=== PATIENT | male | born 1985 | race American Indian/Alaskan Native ===

== ENCOUNTER 2018-01-12 23:37 | Emergency (ER) | payer SELFPAY ==
[2018-01-13] MEDS ORDERED: TYLENOL ONE (00:56)
[2018-01-13] MEDS ORDERED: TYLENOL PO ONE (00:56)
--- NOTE | 2018-01-13 03:10 | XRay Report ---
FINAL REPORT EXAM: XR CHEST ROUTINE 2V HISTORY: cough/ upper back pain TECHNIQUE: 2 views of the chest. PRIORS: None. FINDINGS: The cardiomediastinal silhouette appears normal. The lungs are clear. The bones and soft tissues are unremarkable. IMPRESSION: No evidence of acute cardiopulmonary disease
[2018-01-13] MEDS ORDERED: DUONEB *Not for PRN Use IH ONE (03:20)
[2018-01-13] MEDS ORDERED: MOTRIN PO ONE (03:21)
[2018-01-13] MEDS ORDERED: TESSALON PERLES PO ONE (03:21)
--- NOTE | 2018-01-13 03:28 | Emergency Department Report ---
- General Chief Complaint: Upper Respiratory Infection Stated Complaint: BACK PAIN; COUGH/CONGESTION Time Seen by Provider: 01/13/18 03:14 Source: patient Mode of arrival: Ambulatory Limitations: No Limitations - History of Present Illness Initial Comments: This is a 32-year-old male nontoxic, well nourished in appearance, no acute signs of distress presents to the ED with c/o of productive cough, wheezing, rhinorrhea, nasal congestion, back pain, and shortness of breathe x2 days. Patient describes productive cough as yellow mucus production. Patient denies any sick contact. Patient denies any recent travels, long car, recent hospital stays. Patient denies any calf pain or calf tenderness. Patient denies any chest pain, fever, chills, nausea, vomiting, hemoptysis, numbness, tingling, headache or stiff neck. Patient denies any allergies. Patient states PMH includes HIV. Patient stated that last CD4 count is undetectable. MD Complaint: cough, rhinorrhea, nasal congestion, other (wheezing, sob) -: days(s) (2) Severity: mild Consistency: constant Improves With: nothing Worsens With: nothing Associated Symptoms: rhinorrhea, nasal congestion, cough, shortness of breath. denies: fever, chills, myalgias, diaphoresis, headache, sore throat, stiff neck , chest pain, abdominal pain, nausea, vomiting, diarrhea, dysuria, rash, confusion, right sweats, weight loss, epistaxis, hoarseness, ear pain Treatments Prior to Arrival: none - Related Data Previous Rx's Medication Instructions Recorded Last Taken Type ALBUTEROL Inhaler [ProAir HFA 2 puff IH QID PRN #1 inhalation 01/13/18 Unknown Rx Inhaler] Azithromycin [Zithromax Z-LIBIA] 250 mg PO DAILY #6 tablet 01/13/18 Unknown Rx Benzonatate [Tessalon Perle] 100 mg PO Q8H PRN #20 capsule 01/13/18 Unknown Rx Ibuprofen [Motrin] 600 mg PO Q8H PRN #30 tablet 01/13/18 Unknown Rx Prednisone [predniSONE 10 mg 10 mg PO .TAPER #1 tab.ds.pk 01/13/18 Unknown Rx (6-Day Pack, 21 Tabs)] Allergies Allergy/AdvReac Type Severity Reaction Status Date / Time No Known Allergies Allergy Unverified 01/13/18 00:51 ED Review of Systems ROS: Stated complaint: BACK PAIN; COUGH/CONGESTION Other details as noted in HPI Constitutional: denies: chills, fever Eyes: denies: eye pain, eye discharge, vision change ENT: denies: ear pain, throat pain Respiratory: cough, shortness of breath, wheezing Cardiovascular: denies: chest pain, palpitations Endocrine: no symptoms reported Gastrointestinal: denies: abdominal pain, nausea, diarrhea Genitourinary: denies: urgency, dysuria Musculoskeletal: denies: back pain, joint swelling, arthralgia Skin: denies: rash, lesions Neurological: denies: headache, weakness, paresthesias Psychiatric: denies: anxiety, depression Hematological/Lymphatic: denies: easy bleeding, easy bruising ED Past Medical Hx - Past Medical History Previous Medical History?: Yes Hx HIV: Yes - Surgical History Past Surgical History?: Yes Additional Surgical History: hand sx - Social History Smoking Status: Former Smoker Substance Use Type: Marijuana - Medications Home Medications: Home Medications Medication Instructions Recorded Confirmed Last Taken Type ALBUTEROL Inhaler [ProAir HFA 2 puff IH QID PRN #1 inhalation 01/13/18 Unknown Rx Inhaler] Azithromycin [Zithromax Z-LIBIA] 250 mg PO DAILY #6 tablet 01/13/18 Unknown Rx Benzonatate [Tessalon Perle] 100 mg PO Q8H PRN #20 capsule 01/13/18 Unknown Rx Ibuprofen [Motrin] 600 mg PO Q8H PRN #30 tablet 01/13/18 Unknown Rx Prednisone [predniSONE 10 mg 10 mg PO .TAPER #1 tab.ds.pk 01/13/18 Unknown Rx (6-Day Pack, 21 Tabs)] ED Physical Exam - General Limitations: No Limitations General appearance: alert, in no apparent distress - Head Head exam: Present: atraumatic, normocephalic - Eye Eye exam: Present: normal appearance Pupils: Present: normal accommodation - ENT ENT exam: Present: normal exam, normal orophraynx, mucous membranes moist, TM's normal bilaterally, normal external ear exam - Neck Neck exam: Present: normal inspection, full ROM. Absent: tenderness, meningismus - Respiratory Respiratory exam: Present: normal lung sounds bilaterally, wheezes (bilateral upper and lower lobes). Absent: respiratory distress, rales, rhonchi, stridor, chest wall tenderness, accessory muscle use, decreased breath sounds, prolonged expiratory - Cardiovascular Cardiovascular Exam: Present: regular rate, normal rhythm, normal heart sounds. Absent: irregular rhythm, systolic murmur, diastolic murmur, rubs, gallop - GI/Abdominal GI/Abdominal exam: Present: soft, normal bowel sounds - Rectal Rectal exam: Present: deferred - Extremities Exam Extremities exam: Present: normal inspection, full ROM, normal capillary refill - Back Exam Back exam: Present: normal inspection, full ROM - Neurological Exam Neurological exam: Present: alert, oriented X3, normal gait - Psychiatric Psychiatric exam: Present: normal affect, normal mood - Skin Skin exam: Present: warm, dry, intact, normal color. Absent: rash ED Course Vital Signs 01/13/18 01/13/18 01/13/18 00:51 00:58 04:01 Temperature 98.8 F Pulse Rate 65 Respiratory 18 18 18 Rate Blood Pressure 133/80 O2 Sat by Pulse 97 Oximetry - Reevaluation(s) Reevaluation #1: 01/13/18 03:27 Patient is speaking in full sentences with no signs of distress noted. ED Medical Decision Making - Lab Data Result diagrams: 01/13/18 03:40 01/13/18 03:40 - Medical Decision Making This is a 32-year-old female that presents with upper respiratory infection. Patient is stable and was examined by me. Chest x-ray has been obtained and dictated by radiologist. D-dimer slightly elevated. CTA negative and dictated by the radiologist within normal limits. Wells Criteria for PE/DVT 0 points. Patient is notified of x-ray results with no questions noted. Due to patient having symptoms of upper respiratory infection and worsening I will treat patient empirically with azith. Patient was instructed to increase hydration, rest and take Motrin for fever episodes. Patient received prednisone and DuoNeb treatment. Post treatment in the ED the wheezing has subsided. Patient states she feels much better aftet treatment in the ED. Vitals stable. Patient is nonfebrile and normal heart rate. Patient was orally hydrated and patient tolerated well known nausea or vomiting. Patient was instructed Follow-up with a primary care doctor in 3-5 days or if symptoms worsen and continue return to emergency room as soon as possible. At time time of discharge, the patient does not seem toxic or ill in appearance. No acute signs of distress noted. Patient agrees to discharge treatment plan of care. No further questions noted by the patient. Critical care attestation.: If time is entered above; I have spent that time in minutes in the direct care of this critically ill patient, excluding procedure time. ED Disposition Clinical Impression: Upper respiratory infection Qualifiers: URI type: unspecified URI Qualified Code(s): J06.9 - Acute upper respiratory infection, unspecified Disposition: - TO HOME OR SELFCARE Is pt being admited?: No Does the pt Need Aspirin: No Condition: Stable Instructions: Upper Respiratory Infection (ED) Additional Instructions: Follow-up with a primary care doctor in 3-5 days or if symptoms worsen and continue return to emergency room as soon as possible. Prescriptions: ALBUTEROL Inhaler [ProAir HFA Inhaler] 2 puff IH QID PRN #1 inhalation PRN Reason: Shortness Of Breath Azithromycin [Zithromax Z-LIBIA] 250 mg PO DAILY #6 tablet Benzonatate [Tessalon Perle] 100 mg PO Q8H PRN #20 capsule PRN Reason: Cough Ibuprofen [Motrin] 600 mg PO Q8H PRN #30 tablet PRN Reason: Pain Prednisone [predniSONE 10 mg (6-Day Pack, 21 Tabs)] 10 mg PO .TAPER #1 tab.ds.pk Referrals: TARAH VELASCO MD [Primary Care Provider] - 3-5 Days PRIMARY CARE, [Referring] - 3-5 Days [facility] [Outside] - 3-5 Days [facility] [Outside] - 3-5 Days Forms: Work/School Release Form(ED)
[2018-01-13 04:09] LABS: Basophils % (Auto) 0.7 % (0.0-1.8); Eosinophils # (Auto) 0.2 K/mm3 (0.0-0.4); Eosinophils % (Auto) 3.6 % (0.0-4.3); Hematocrit 41.9 % (35.5-45.6); Lymphocytes # (Auto) 2.6 K/mm3 (1.2-5.4); Lymphocytes % (Auto) 39.8 % (13.4-35.0); Mean Corpuscular HGB Conc 33 % (32-34); Mean Corpuscular Hemoglobin 30 pg (28-32); Mean Corpuscular Volume 91 fl (84-94); Monocytes # (Auto) 0.5 K/mm3 (0.0-0.8); Monocytes % (Auto) 8.4 % (0.0-7.3); Platelet Count 251 K/mm3 (140-440); Red Blood Count 4.63 M/mm3 (3.65-5.03); Red Cell Distribution Width 13.8 % (13.2-15.2)
[2018-01-13 04:27] LABS: BUN/Creatinine Ratio 11; Blood Urea Nitrogen 9 mg/dL (9-20); Calcium 9.1 mg/dL (8.4-10.2); Hemolysis Index 1
--- NOTE | 2018-01-13 05:54 | Cat Scan Report ---
FINAL REPORT EXAM: CT ANGIO CHEST HISTORY: sob with cough and back pain TECHNIQUE: CT imaging obtained through the chest in pulmonary angiographic phase following intravenous administration of contrast. Transaxial, Coronal and sagittal reformats with maximal intensity projections are provided. PRIORS: None. FINDINGS: Normal caliber main pulmonary artery. Well opacified pulmonary arterial tree. No pulmonary embolism. No pericardial effusion. Thoracic aorta is normal in course and caliber. No periaortic fluid or stranding. No pneumothorax, effusion or focal airspace disease. The central airways are patent. Very mild diffuse cylindrical bronchiectasis. No bronchial wall thickening identified. Imaged portion of the upper abdomen is unremarkable. The superficial soft tissues are unremarkable. No acute bony abnormality or worrisome osseous lesions identified. IMPRESSION: No pulmonary embolism. Very mild diffuse cylindrical bronchiectasis may be infectious or inflammatory in etiology. There is no focal airspace disease or pleural effusion.
[2018-01-13 06:13] VITALS: BP 120/82
== END 2018-01-13 06:12 | disposition home or self-care (01) ==
LOC: ED 23:37
DX: J06.9 Acute upper respiratory infection, unspecified (principal); Z87.891 Personal history of nicotine dependence
CPT/HCPCS: 36415; 71046; 71275; 80048; 85025; 85379; 96372; 99284; J2930; Q9967

== ENCOUNTER 2019-01-05 18:59 | Emergency (ER) | payer SELFPAY ==
[2019-01-05 22:17] LABS: Bilirubin,Urine NEG (Negative); Blood,Urine NEG (Negative); Color,Urine Yellow (Yellow); Mucus,Urine FEW /HPF; Protein,Urine <15 mg/dL mg/dL (Negative)
[2019-01-05] MEDS ORDERED: ROCEPHIN IM ONE (23:53)
[2019-01-05] MEDS ORDERED: ZITHROMAX PO ONE (23:53)
[2019-01-05] MEDS ORDERED: XYLOCAINE 1% MPF 5 mL INFILTRATI ONE (23:53)
--- NOTE | 2019-01-05 23:59 | Emergency Department Report ---
ED General Adult HPI - General Chief complaint: Urogenital-Male Stated complaint: NECK AND HEAD PAIN/DISCHARGE Time Seen by Provider: 01/05/19 23:48 Source: patient Mode of arrival: Ambulatory Limitations: No Limitations - History of Present Illness Initial comments: Patient presents for STD exposure. Penile discharge white thick dysuria frequency urgency plan: rocephin, azithromycin, dc to home with doxycycline po pt will follow up with health department tomorrow for HSV and HIV screening. Onset/Timin -: days(s) Radiation: non-radiation Severity scale (0 -10): 7 Improves with: none Worsens with: none Treatments Prior to Arrival: none - Related Data Previous Rx's Medication Instructions Recorded Last Taken Type ALBUTEROL Inhaler (OR & NICU) 2 puff IH QID PRN #1 inhalation 01/13/18 Unknown Rx [ProAir HFA Inhaler] Azithromycin [Zithromax Z-LIBIA] 250 mg PO DAILY #6 tablet 01/13/18 Unknown Rx Benzonatate [Tessalon Perle] 100 mg PO Q8H PRN #20 capsule 01/13/18 Unknown Rx Ibuprofen [Motrin] 600 mg PO Q8H PRN #30 tablet 01/13/18 Unknown Rx Prednisone [predniSONE 10 mg 10 mg PO .TAPER #1 tab.ds.pk 01/13/18 Unknown Rx (6-Day Pack, 21 Tabs)] Doxycycline [Vibramycin CAP] 100 mg PO BID 10 Days #20 capsule 01/06/19 Unknown Rx Allergies Allergy/AdvReac Type Severity Reaction Status Date / Time No Known Allergies Allergy Unverified 01/13/18 00:51 ED Review of Systems ROS: Stated complaint: NECK AND HEAD PAIN/DISCHARGE Other details as noted in HPI Constitutional: denies: chills, fever Eyes: denies: eye pain, eye discharge, vision change ENT: denies: ear pain, throat pain Respiratory: denies: cough, shortness of breath, wheezing Cardiovascular: denies: chest pain, palpitations Endocrine: no symptoms reported Gastrointestinal: denies: abdominal pain, nausea, diarrhea Genitourinary: urgency, dysuria, frequency, discharge. denies: hematuria, testicular pain, testicular mass Musculoskeletal: denies: back pain, joint swelling, arthralgia Skin: denies: rash, lesions Neurological: denies: headache, weakness, paresthesias Psychiatric: denies: anxiety, depression Hematological/Lymphatic: denies: easy bleeding, easy bruising ED Past Medical Hx - Past Medical History Previous Medical History?: Yes Hx Headaches / Migraines: Yes Hx HIV: Yes - Surgical History Past Surgical History?: Yes Additional Surgical History: hand sx - Social History Smoking Status: Current Every Day Smoker Substance Use Type: Marijuana - Medications Home Medications: Home Medications Medication Instructions Recorded Confirmed Last Taken Type ALBUTEROL Inhaler (OR & NICU) 2 puff IH QID PRN #1 inhalation 01/13/18 Unknown Rx [ProAir HFA Inhaler] Azithromycin [Zithromax Z-LIBIA] 250 mg PO DAILY #6 tablet 01/13/18 Unknown Rx Benzonatate [Tessalon Perle] 100 mg PO Q8H PRN #20 capsule 01/13/18 Unknown Rx Ibuprofen [Motrin] 600 mg PO Q8H PRN #30 tablet 01/13/18 Unknown Rx Prednisone [predniSONE 10 mg 10 mg PO .TAPER #1 tab.ds.pk 01/13/18 Unknown Rx (6-Day Pack, 21 Tabs)] Doxycycline [Vibramycin CAP] 100 mg PO BID 10 Days #20 capsule 01/06/19 Unknown Rx ED Physical Exam - General Limitations: No Limitations General appearance: alert, in no apparent distress - Head Head exam: Present: atraumatic, normocephalic - Eye Eye exam: Present: normal appearance, PERRL, EOMI Pupils: Present: normal accommodation - ENT ENT exam: Present: mucous membranes moist - Neck Neck exam: Present: normal inspection - Respiratory Respiratory exam: Present: normal lung sounds bilaterally. Absent: respiratory distress - Cardiovascular Cardiovascular Exam: Present: regular rate, normal rhythm. Absent: systolic murmur, diastolic murmur, rubs, gallop - GI/Abdominal GI/Abdominal exam: Present: soft, normal bowel sounds - Rectal Rectal exam: Present: deferred - exam: Present: urethral discharge, circumcision. Absent: testicular tenderness, scrotal swelling, vertical testicular lie - Extremities Exam Extremities exam: Present: normal inspection, full ROM - Back Exam Back exam: Present: normal inspection, full ROM - Neurological Exam Neurological exam: Present: alert, oriented X3 - Psychiatric Psychiatric exam: Present: normal affect, normal mood - Skin Skin exam: Present: warm, dry, intact, normal color. Absent: rash ED Course Vital Signs 01/05/19 20:31 Temperature 97.8 F Pulse Rate 80 Respiratory 20 Rate Blood Pressure 114/74 O2 Sat by Pulse 99 Oximetry ED Medical Decision Making - Lab Data Labs 01/05/19 21:55 Urine Color Yellow Urine Turbidity Clear Urine pH 6.0 Ur Specific [place] 1.027 Urine Protein <15 mg/dl Urine Glucose (UA) Neg Urine Ketones Neg Urine Blood Neg Urine Nitrite Neg Urine Bilirubin Neg Urine Urobilinogen 2.0 Ur Leukocyte Esterase Neg Urine WBC (Auto) 2.0 Urine RBC (Auto) 1.0 Urine Mucus Few - Medical Decision Making Patient presents for STD exposure. Penile discharge white thick dysuria frequency urgency plan: rocephin, azithromycin, dc to home with doxycycline po pt will follow up with health department tomorrow for HSV and HIV screening. Critical care attestation.: If time is entered above; I have spent that time in minutes in the direct care of this critically ill patient, excluding procedure time. ED Disposition Clinical Impression: STD (male) Disposition: -01 TO HOME OR SELFCARE Is pt being admited?: No Does the pt Need Aspirin: No Condition: Stable Instructions: Sexually Transmitted Diseases (ED) Prescriptions: Doxycycline [Vibramycin CAP] 100 mg PO BID 10 Days #20 capsule Referrals: [facility] [Outside] - 2-3 Days Forms: Work/School Release Form(ED) Time of Disposition: 00:01
[2019-01-06 00:36] VITALS: BP 118/66
== END 2019-01-06 00:35 | disposition home or self-care (01) ==
LOC: ED 18:59
DX: A64 Unspecified sexually transmitted disease (principal); G43.909 Migraine, unspecified, not intractable, without status migrainosus; F17.200 Nicotine dependence, unspecified, uncomplicated
CPT/HCPCS: 81001; 96372; 99283; J0696

== ENCOUNTER 2019-05-25 14:37 | Emergency (ER) | payer OTHER ==
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
[2019-05-25 14:53] VITALS: BP 129/81
[2019-05-25 15:25] LABS: Hematocrit 42.4 % (35.5-45.6); Hemoglobin 14.4 gm/dl (11.8-15.2); Mean Corpuscular HGB Conc 34 % (32-34); Mean Corpuscular Volume 93 fl (84-94); Platelet Count 270 K/mm3 (140-440); Red Blood Count 4.56 M/mm3 (3.65-5.03)
[2019-05-25 15:26] LABS: Bilirubin,Urine NEG (Negative); Blood,Urine NEG (Negative); Color,Urine Yellow (Yellow); Mucus,Urine 3+ /HPF; Protein,Urine <15 mg/dL mg/dL (Negative); Urobilinogen,Urine < 2.0 mg/dL (<2.0)
--- NOTE | 2019-05-25 15:40 | XRay Report ---
CHEST 2 VIEWS INDICATION: MAIN: pain neck to mid back. COMPARISON: None FINDINGS: Support devices: None. Heart: Within normal limits. Lungs/pleura: No acute air space or interstitial disease. No pneumothorax. Additional findings: None. IMPRESSION: No acute findings. Signer Name: Connor Valencia Jr, MD Signed: 05/25/2019 3:36 PM Workstation Name: [id number]
[2019-05-25] MEDS ORDERED: DELTASONE PO STA (16:01)
[2019-05-25] MEDS ORDERED: PERCOCET 5/325 PO STA (16:01)
[2019-05-25 16:09] LABS: Alanine Aminotransferase 10 units/L (7-56); Albumin 4.4 g/dL (3.9-5); BUN/Creatinine Ratio 11; Blood Urea Nitrogen 10 mg/dL (9-20); Calcium 9.4 mg/dL (8.4-10.2); Hemolysis Index 11
--- NOTE | 2019-05-25 17:04 | Emergency Department Report ---
ED Back Pain/Injury HPI - General Chief Complaint: Back Pain/Injury Stated Complaint: BACK/NECK PAIN Time Seen by Provider: 05/25/19 14:53 Source: patient Limitations: No Limitations - Related Data Previous Rx's Medication Instructions Recorded Last Taken Type ALBUTEROL Inhaler (OR & NICU) 2 puff IH QID PRN #1 inhalation 01/13/18 Unknown Rx [ProAir HFA Inhaler] Azithromycin [Zithromax Z-LIBIA] 250 mg PO DAILY #6 tablet 01/13/18 Unknown Rx Benzonatate [Tessalon Perle] 100 mg PO Q8H PRN #20 capsule 01/13/18 Unknown Rx Ibuprofen [Motrin] 600 mg PO Q8H PRN #30 tablet 01/13/18 Unknown Rx Prednisone [predniSONE 10 mg 10 mg PO .TAPER #1 tab.ds.pk 01/13/18 Unknown Rx (6-Day Pack, 21 Tabs)] DOXYCYCLINE Hyclate [Vibramycin 100 mg PO BID 10 Days #20 capsule 01/06/19 Unknown Rx CAP] Ketorolac [Toradol] 10 mg PO Q6H PRN #15 tablet 05/25/19 Unknown Rx methOCARBAMOL [Robaxin TAB] 750 mg PO Q8H PRN #14 tablet 05/25/19 Unknown Rx Allergies Allergy/AdvReac Type Severity Reaction Status Date / Time No Known Allergies Allergy Unverified 01/13/18 00:51 ED Review of Systems ROS: Stated complaint: BACK/NECK PAIN Other details as noted in HPI Comment: All other systems reviewed and negative ED Past Medical Hx - Past Medical History Previous Medical History?: Yes Hx Headaches / Migraines: Yes Hx HIV: Yes - Surgical History Past Surgical History?: Yes Additional Surgical History: hand sx - Social History Smoking Status: Never Smoker Substance Use Type: Marijuana - Medications Home Medications: Home Medications Medication Instructions Recorded Confirmed Last Taken Type ALBUTEROL Inhaler (OR & NICU) 2 puff IH QID PRN #1 inhalation 01/13/18 Unknown Rx [ProAir HFA Inhaler] Azithromycin [Zithromax Z-LIBIA] 250 mg PO DAILY #6 tablet 01/13/18 Unknown Rx Benzonatate [Tessalon Perle] 100 mg PO Q8H PRN #20 capsule 01/13/18 Unknown Rx Ibuprofen [Motrin] 600 mg PO Q8H PRN #30 tablet 01/13/18 Unknown Rx Prednisone [predniSONE 10 mg 10 mg PO .TAPER #1 tab.ds.pk 01/13/18 Unknown Rx (6-Day Pack, 21 Tabs)] DOXYCYCLINE Hyclate [Vibramycin 100 mg PO BID 10 Days #20 capsule 01/06/19 Unknown Rx CAP] Ketorolac [Toradol] 10 mg PO Q6H PRN #15 tablet 05/25/19 Unknown Rx methOCARBAMOL [Robaxin TAB] 750 mg PO Q8H PRN #14 tablet 05/25/19 Unknown Rx ED Physical Exam - General Limitations: No Limitations General appearance: alert, in no apparent distress - Head Head exam: Present: atraumatic, normocephalic - Eye Eye exam: Present: normal appearance - ENT ENT exam: Present: mucous membranes moist - Neck Neck exam: Present: normal inspection. Absent: meningismus, lymphadenopathy, thyromegaly - Respiratory Respiratory exam: Present: normal lung sounds bilaterally. Absent: respiratory distress - Cardiovascular Cardiovascular Exam: Present: regular rate, normal rhythm. Absent: systolic murmur, diastolic murmur, rubs, gallop - GI/Abdominal GI/Abdominal exam: Present: soft, normal bowel sounds - Rectal Rectal exam: Present: deferred - Extremities Exam Extremities exam: Present: normal inspection - Back Exam Back exam: Present: normal inspection, paraspinal tenderness. Absent: CVA tenderness (R), CVA tenderness (L) - Neurological Exam Neurological exam: Present: alert, oriented X3, CN II-XII intact, normal gait. Absent: motor sensory deficit - Psychiatric Psychiatric exam: Present: normal affect, normal mood - Skin Skin exam: Present: warm, dry, intact, normal color. Absent: rash ED Course Vital Signs 05/25/19 14:50 Temperature 97.9 F Pulse Rate 64 Respiratory 22 Rate Blood Pressure 129/81 O2 Sat by Pulse 98 Oximetry ED Medical Decision Making - Lab Data Result diagrams: 05/25/19 15:13 05/25/19 15:13 - Medical Decision Making 33-year-old male with chronic recurrent back pain since emergency department complaining of mid back pain. He denies any recent injuries. No numbness or tingling. No loss of bowel or bladder, no saddle paresthesia. No chest pain or shortness of breath, no hemoptysis, no hematemesis, no hematochezia. Critical care attestation.: If time is entered above; I have spent that time in minutes in the direct care of this critically ill patient, excluding procedure time. ED Disposition Clinical Impression: Musculoskeletal pain Disposition: TO HOME OR SELFCARE Is pt being admited?: No Does the pt Need Aspirin: No Condition: Stable Instructions: Back Pain (ED), Arthralgia (ED), Low Back Strain (ED) Prescriptions: methOCARBAMOL [Robaxin TAB] 750 mg PO Q8H PRN #14 tablet PRN Reason: Pain, Moderate (4-6) Ketorolac [Toradol] 10 mg PO Q6H PRN #15 tablet PRN Reason: Pain Referrals: SRI FRAZIER MD [Primary Care Provider] - 3-5 Days
== END 2019-05-25 17:15 | disposition home or self-care (01) ==
LOC: ED 14:37
DX: M79.10 Myalgia, unspecified site (principal)
CPT/HCPCS: 36415; 71046; 80053; 81001; 85027; 99283; J7512

== ENCOUNTER 2019-05-30 18:40 | Emergency (ER) | payer OTHER ==
[2019-05-30 19:56] VITALS: BP 126/77
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
[2019-05-30] MEDS ORDERED: TYLENOL #3 PO ONE (20:52)
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
== END 2019-05-30 21:18 | disposition home or self-care (01) ==
LOC: ED 18:40
DX: S29.012A Strain of muscle and tendon of back wall of thorax, initial encounter (principal); S13.4XXA Sprain of ligaments of cervical spine, initial encounter; G43.909 Migraine, unspecified, not intractable, without status migrainosus; F17.200 Nicotine dependence, unspecified, uncomplicated; F12.10 Cannabis abuse, uncomplicated; Z79.899 Other long term (current) drug therapy; V49.59XA Passenger injured in collision with other motor vehicles in traffic accident, initial encounter; Y93.89 Activity, other specified; Y92.488 Other paved roadways as the place of occurrence of the external cause; Y99.8 Other external cause status
CPT/HCPCS: 72040; 72072

== ENCOUNTER 2019-07-06 20:43 | Emergency (ER) | payer SELFPAY ==
[2019-07-06 20:51] VITALS: BP 128/89
--- NOTE | 2019-07-06 21:49 | Emergency Department Report ---
Chief Complaint: Urogenital-Male Stated Complaint: DISCHARGE Time Seen by Provider: 07/06/19 21:42 - HPI History of Present Illness: This is a 31-year-old male nontoxic, well in appearance with no signs of distress presents to the ED for STD check. 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 Reports recent exposure to STD. Denies any testicular pain, or swelling, urinary symptoms, fever, chills, nausea, vomiting, chest pain or shortness of breathe. - ROS Review of Systems: Constitutional: denies: chills, fever Respiratory: denies: cough, shortness of breath, wheezing Cardiovascular: denies: chest pain, palpitations Gastrointestinal: denies: abdominal pain, nausea, diarrhea Genitouinary: admits: penile discharge. denies: testicular swelling or pain Skin: admits: rash to occipital scalp. denies: lesions. Neurological: denies: headache, weakness, paresthesias Psychiatric: denies: anxiety, depression - Exam Vital Signs: Vital Signs 07/06/19 20:50 Temperature 98.2 F Pulse Rate 100 H Respiratory 18 Rate Blood Pressure 128/89 O2 Sat by Pulse 97 Oximetry Physical Exam: General appearance: in no apparent distress, lethargic Respiratory exam: Present: normal lung sounds bilaterally. Absent: respiratory distress Cardiovascular Exam: Present: regular rate, normal rhythm. Absent: systolic murmur, diastolic murmur, rubs, gallop GI/Abdominal exam: Present: soft, normal bowel sounds. Absent: distended, tenderness, guarding, rebound Extremities exam: Present: normal inspection Neurological exam: Present: alert, oriented X3, CN II-XII intact. Absent: motor sensory deficit Skin exam: Present: warm, dry, intact, normal color. Absent: rash MSE screening note: Focused history and physical exam performed. Due to findings the following was ordered: ED Medical Decision Making - Medical Decision Making This is a 33-year-old male that presents to the ED for STD screening and penile discharge. Patient is stable was examined by me. Vitals are stable. Denies testicular pain, or swelling, urinary symptoms, fever, chills, nausea, or vomiting. This is a non-emergent medical complaint. Patient was referred to Follow-up with a primary care doctor in 3-5 days and given a list of places to follow up with. At time of discharge, the patient does not seem toxic or ill in appearance. No acute signs of distress noted. Patient agrees to discharge treatment plan of care. No further questions noted by the patient. ED Disposition for MSE Clinical Impression: Potential exposure to STD, Feared complaint without diagnosis Disposition: DC-01 TO HOME OR SELFCARE Is pt being admited?: No Does the pt Need Aspirin: No Condition: Stable Instructions: Safe Sex (ED), Sexually Transmitted Diseases (ED) Referrals: [facility] [Outside] - 3-5 Days [facility] [place] [Outside] - 3-5 Days [facility] [Outside] - 3-5 Days [facility] [Outside] - 3-5 Days Time of Disposition: 22:11
== END 2019-07-06 22:48 | disposition home or self-care (01) ==
LOC: ED 20:43
DX: R36.9 Urethral discharge, unspecified (principal); Z20.2 Contact with and (suspected) exposure to infections with a predominantly sexual mode of transmission; Z71.1 Person with feared health complaint in whom no diagnosis is made
CPT/HCPCS: 99282

== ENCOUNTER 2019-12-06 02:12 | Emergency (ER) | payer SELFPAY ==
[2019-12-06 02:19] VITALS: BP 123/80
--- NOTE | 2019-12-06 02:57 | Emergency Department Report ---
ED General Adult HPI - General Chief complaint: Dental/Oral Stated complaint: THROAT HURT Time Seen by Provider: 12/06/19 02:46 Source: patient Mode of arrival: Ambulatory Limitations: No Limitations - History of Present Illness Initial comments: 34-year-old male with a history of HIV with undetectable viral load presents with complaint of sore throat and right upper molar pain for the past week. Patient said he has had this pain in his tooth for the past 2 months that is worsened over the past week. Patient denies any fever. Patient has had no f acial swelling. Patient is able to tolerate liquids without complication. Patient has had no vomiting. Patient has had no voice changes. - Related Data Previous Rx's Medication Instructions Recorded Last Taken Type Albuterol INH(or & Nicu Only) 2 puff IH QID PRN #1 inhalation 01/13/18 Unknown Rx [ProAir HFA Inhaler] Azithromycin [Zithromax Z-LIBIA] 250 mg PO DAILY #6 tablet 01/13/18 Unknown Rx Benzonatate [Tessalon Perle] 100 mg PO Q8H PRN #20 capsule 01/13/18 Unknown Rx Ibuprofen [Motrin] 600 mg PO Q8H PRN #30 tablet 01/13/18 Unknown Rx Prednisone [predniSONE 10 mg 10 mg PO .TAPER #1 tab.ds.pk 01/13/18 Unknown Rx (6-Day Pack, 21 Tabs)] DOXYCYCLINE Hyclate [Vibramycin 100 mg PO BID 10 Days #20 capsule 01/06/19 Unknown Rx CAP] Ketorolac [Toradol] 10 mg PO Q6H PRN #15 tablet 05/25/19 Unknown Rx methOCARBAMOL [Robaxin TAB] 750 mg PO Q8H PRN #14 tablet 05/25/19 Unknown Rx Cyclobenzaprine [Flexeril] 10 mg PO QHS PRN #10 tablet 05/30/19 Unknown Rx Ibuprofen [Motrin] 600 mg PO Q8H PRN #20 tablet 05/30/19 Unknown Rx HYDROcodone/APAP 5-325 [[place] 1 each PO Q6HR PRN #16 tablet 12/06/19 Unknown Rx 5/325] Penicillin Vk [Veetids TAB] 500 mg PO QID 7 Days #28 tablet 12/06/19 Unknown Rx Allergies Allergy/AdvReac Type Severity Reaction Status Date / Time No Known Allergies Allergy Verified 05/30/19 18:42 ED Review of Systems ROS: Stated complaint: THROAT HURT Other details as noted in HPI Constitutional: denies: chills, fever Eyes: denies: eye pain, eye discharge, vision change ENT: throat pain, dental pain Respiratory: denies: cough, shortness of breath, wheezing Cardiovascular: denies: chest pain, palpitations Endocrine: no symptoms reported Gastrointestinal: denies: abdominal pain, nausea, diarrhea Genitourinary: denies: urgency, dysuria Musculoskeletal: denies: back pain, joint swelling, arthralgia Skin: denies: rash, lesions Neurological: denies: headache, weakness, paresthesias Psychiatric: denies: anxiety, depression Hematological/Lymphatic: denies: easy bleeding, easy bruising ED Past Medical Hx - Past Medical History Previous Medical History?: Yes Hx Headaches / Migraines: Yes Hx HIV: Yes - Surgical History Past Surgical History?: Yes Additional Surgical History: hand sx - Social History Smoking Status: Current Every Day Smoker Substance Use Type: Marijuana - Medications Home Medications: Home Medications Medication Instructions Recorded Confirmed Last Taken Type Albuterol INH(or & Nicu Only) 2 puff IH QID PRN #1 inhalation 01/13/18 Unknown Rx [ProAir HFA Inhaler] Azithromycin [Zithromax Z-LIBIA] 250 mg PO DAILY #6 tablet 01/13/18 Unknown Rx Benzonatate [Tessalon Perle] 100 mg PO Q8H PRN #20 capsule 01/13/18 Unknown Rx Ibuprofen [Motrin] 600 mg PO Q8H PRN #30 tablet 01/13/18 Unknown Rx Prednisone [predniSONE 10 mg 10 mg PO .TAPER #1 tab.ds.pk 01/13/18 Unknown Rx (6-Day Pack, 21 Tabs)] DOXYCYCLINE Hyclate [Vibramycin 100 mg PO BID 10 Days #20 capsule 01/06/19 Unknown Rx CAP] Ketorolac [Toradol] 10 mg PO Q6H PRN #15 tablet 05/25/19 Unknown Rx methOCARBAMOL [Robaxin TAB] 750 mg PO Q8H PRN #14 tablet 05/25/19 Unknown Rx Cyclobenzaprine [Flexeril] 10 mg PO QHS PRN #10 tablet 05/30/19 Unknown Rx Ibuprofen [Motrin] 600 mg PO Q8H PRN #20 tablet 05/30/19 Unknown Rx HYDROcodone/APAP 5-325 [[place] 1 each PO Q6HR PRN #16 tablet 12/06/19 Unknown Rx 5/325] Penicillin Vk [Veetids TAB] 500 mg PO QID 7 Days #28 tablet 12/06/19 Unknown Rx ED Physical Exam - General Limitations: No Limitations General appearance: alert, in no apparent distress - Head Head exam: Present: atraumatic, normocephalic - Eye Eye exam: Present: normal appearance - ENT ENT exam: Present: mucous membranes moist, other (Uvula midline; no tonsillar erythema or exudate. tooth #4 shows caries with no surrounding erythema or exud ate) - Neck Neck exam: Present: normal inspection - Respiratory Respiratory exam: Present: normal lung sounds bilaterally. Absent: respiratory distress - Cardiovascular Cardiovascular Exam: Present: regular rate, normal rhythm. Absent: systolic murmur, diastolic murmur, rubs, gallop - GI/Abdominal GI/Abdominal exam: Present: soft, normal bowel sounds - Rectal Rectal exam: Present: deferred - Extremities Exam Extremities exam: Present: normal inspection - Back Exam Back exam: Present: normal inspection - Neurological Exam Neurological exam: Present: alert, oriented X3 - Psychiatric Psychiatric exam: Present: normal affect, normal mood - Skin Skin exam: Present: warm, dry, intact, normal color. Absent: rash ED Course Vital Signs 12/06/19 12/06/19 02:16 03:21 Temperature 97.7 F Pulse Rate 83 Respiratory 18 18 Rate Blood Pressure 123/80 O2 Sat by Pulse 99 Oximetry ED Medical Decision Making - Medical Decision Making Patient to be treated as an outpatient. Patient has a strep test which is negative. Patient received penicillin [place] therapy for. Pain control and told to follow-up with dentist. - Differential Diagnosis Dental Abscess; Strep Pharyngitis; Critical care attestation.: If time is entered above; I have spent that time in minutes in the direct care of this critically ill patient, excluding procedure time. ED Disposition Clinical Impression: Dentalgia, Pharyngitis Disposition: TO HOME OR SELFCARE Is pt being admited?: No Does the pt Need Aspirin: No Condition: Stable Instructions: Dental Caries (ED) Prescriptions: HYDROcodone/APAP 5-325 [[place] 5/325] 1 each PO Q6HR PRN #16 tablet PRN Reason: Pain Penicillin Vk [Veetids TAB] 500 mg PO QID 7 Days #28 tablet Referrals: PRIMARY CARE, [Primary Care Provider] - 3-5 Days EVELINA SMITH DDS [Staff Physician] - 3-5 Days Time of Disposition: 03:31 Print Language: OCCITAN
[2019-12-06] MEDS ORDERED: ACETAMINOPHEN 500 MG TAB PO ONE (03:14)
== END 2019-12-06 03:40 | disposition home or self-care (01) ==
LOC: ED 02:12
DX: K08.89 Other specified disorders of teeth and supporting structures (principal); J02.9 Acute pharyngitis, unspecified; G43.909 Migraine, unspecified, not intractable, without status migrainosus; F17.200 Nicotine dependence, unspecified, uncomplicated; F12.10 Cannabis abuse, uncomplicated; Z21 Asymptomatic human immunodeficiency virus [HIV] infection status; Z98.890 Other specified postprocedural states; Z79.1 Long term (current) use of non-steroidal anti-inflammatories (NSAID); Z79.2 Long term (current) use of antibiotics; Z79.899 Other long term (current) drug therapy
CPT/HCPCS: 87116; 87430